=== PATIENT | female | born 1945 | race Caucasian/White ===

== ENCOUNTER 2019-07-03 13:05 | Outpatient (CLI) | payer MEDICARE, OTHER ==
[~2019-07-03] VITALS: Ht 165 cm; Wt 83.3 kg
[2019-07-03 13:29] VITALS: BP 134/87
[2019-07-03 14:07] LABS: BASOPHILS # (AUTO) 0.1 10^3/uL (0.0-0.1); BASOPHILS % (AUTO) 1 % (0-10); EOSINOPHILS # (AUTO) 0.1 10^3/uL (0.0-0.3); EOSINOPHILS % (AUTO) 1 % (0-10); HEMATOCRIT 42 % (35-52); HEMOGLOBIN 13.8 G/DL (11.5-16.0); LYMPHOCYTES # (AUTO) 2.1 X 10^3 (1.0-4.0); LYMPHOCYTES % (AUTO) 24 % (12-44); MEAN CORPUSCULAR HEMOGLOBIN 31 PG (25-34); MEAN CORPUSCULAR HGB CONC 33 G/DL (32-36); MEAN CORPUSCULAR VOLUME 93 FL (80-99); MEAN PLATELET VOLUME 10.9 FL (7.4-10.4); MONOCYTES # (AUTO) 0.6 X 10^3 (0.0-1.0); MONOCYTES % (AUTO) 7 % (0-12); NEUTROPHILS # (AUTO) 5.9 X 10^3 (1.8-7.8); NEUTROPHILS % (AUTO) 67 % (42-75); PLATELET COUNT 255 10^3/uL (130-400); RED CELL DISTRIBUTION WIDTH 13.2 % (10.0-14.5); WHITE BLOOD COUNT 8.7 10^3/uL (4.3-11.0)
[2019-07-03 14:08] LABS: BILIRUBIN,URINE NEGATIVE (NEGATIVE); CLARITY,URINE CLEAR; COLOR,URINE YELLOW; GLUCOSE, URINE (UA) NEGATIVE (NEGATIVE); KETONES,URINE 1+ (NEGATIVE); LEUKOCYTE ESTERASE ,URINE 2+ (NEGATIVE); NITRITE,URINE NEGATIVE (NEGATIVE); PH,URINE 5 (5-9); PROTEIN,URINE NEGATIVE (NEGATIVE)
[2019-07-03 14:29] LABS: PROTHROMBIN TIME PATIENT 13.4 SEC (12.2-14.7)
[2019-07-03 14:32] LABS: ALANINE AMINOTRANSFERASE 20 U/L (0-55); ALBUMIN 4.3 GM/DL (3.2-4.5); ALKALINE PHOSPHATASE 59 U/L (40-136); BILIRUBIN,TOTAL 0.5 MG/DL (0.1-1.0); BUN/CREATININE RATIO 25; CALCIUM 9.1 MG/DL (8.5-10.1); CARBON DIOXIDE 25 MMOL/L (21-32); CHLORIDE 110 MMOL/L (98-107); GFR ESTIMATED > 60; GLUCOSE 96 MG/DL (70-105); POTASSIUM 4.1 MMOL/L (3.6-5.0); SODIUM 143 MMOL/L (135-145); TOTAL PROTEIN 6.7 GM/DL (6.4-8.2)
--- NOTE | 2019-07-03 14:40 | Diagnostic Imaging Report ---
EXAMINATION: PA and lateral chest at 02:08 p.m. INDICATION: Preop. FINDINGS: There are no prior studies available for comparison. The heart size is within normal limits. The lungs are clear. There is no sign of failure, pneumonia, or pleural effusion. The ascending aortic shadow is somewhat prominent, but there is no sign of an aneurysm. The mediastinum is not widened. The osseous structures are intact. IMPRESSION: There is no evidence for an acute cardiopulmonary abnormality. Dictated by: Dictated on workstation # [id number]
[2019-07-03 14:47] LABS: BACTERIA,URINE TRACE /HPF
[2019-07-03 15:02] LABS: ERYTHROCYTE SEDIMENTATION RATE 14 MM/HR (0-30)
== END 2019-07-03 15:30 | disposition home or self-care (01) ==
LOC: PREOP 13:05
PROVIDERS: ATTEND Orthopaedic Surgery
DX: Z01.818 Encounter for other preprocedural examination (principal); M17.11 Unilateral primary osteoarthritis, right knee
CPT/HCPCS: 36415; 71046; 80053; 81000; 85025; 85610; 85652; 86850; 86900; 86901; 87081; 93005

== ENCOUNTER 2019-07-16 05:46 | Inpatient (IN) | payer MEDICARE, OTHER ==
--- NOTE | 2019-07-03 13:48 | HISTORY AND PHYSICAL ---
DATE OF SERVICE: ADMISSION HISTORY AND PHYSICAL ADMISSION SURGERY DATE AND DATE OF SERVICE: 07/16/2019. This will be for inpatient admission on 07/16/2019 for right total knee arthroplasty. The patient will require regular inpatient admission for pain management, gait abnormalities, physical therapy and comorbidities. HISTORY OF PRESENT ILLNESS: The patient is a 73-year-old female with progressively worsening right knee pain. She has had several years of progressive symptoms. She has undergone treatment with injections as well as anti-inflammatories and arthroscopy without long lasting relief. She reports progressive points to the point where it is interfering with activities of daily living. She denies back pain and denies paresthesias. Due to functional impairment and failure to improve with conservative measures, the patient elected to proceed with surgical intervention. REVIEW OF SYSTEMS: No chest pain, no shortness of breath, no dysuria. PAST MEDICAL HISTORY: Unremarkable. PAST SURGICAL HISTORY: Left hand, right knee arthroscopy. SOCIAL HISTORY: The patient denies alcohol, or tobacco use. FAMILY HISTORY: Significant for cancer. PRIMARY CARE PROVIDER: No local physician. MEDICATIONS: None. ALLERGIES: No known drug allergies. RADIOGRAPHS: Reveal severe tricompartmental osteoarthritis with complete loss of medial and patellofemoral joint spaces with multiple loose bodies noted. PHYSICAL EXAMINATION: GENERAL: The patient is well developed, well-nourished, in no acute distress. HEENT: Normocephalic, atraumatic. Pupils are equal, round, reactive to light. Oropharynx is clear. NECK: Supple, no lymphadenopathy. LUNGS: Clear to auscultation bilaterally. HEART: Regular rate and rhythm. ABDOMEN: Soft, nontender, nondistended. EXTREMITIES: The right knee demonstrates a large effusion. There is no erythema or warmth. Range of motion is 0/120. There is no varus valgus laxity. Negative anterior and posterior drawer. Patella demonstrates marked crepitus. She has negative straight leg raise. IMPRESSION: Right knee severe osteoarthritis, unresponsive to conservative measures. PLAN: Right total knee arthroplasty. The risks, benefits, options, ramifications and recovery were discussed at length with the patient. She understands and wishes to proceed. Job ID: [id number] DocumentID: [id number] Dictated Date: 07/03/2019 11:27:14 Financial Wellness Coach Date: 07/03/2019 13:46:56 Dictated By: MARK FISCHER MD
[2019-07-16] VITALS (13 sets, daily range): BP systolic 98–139; BP diastolic 51–105
[~2019-07-16] VITALS: Ht 165 cm; Wt 83.3 kg
[2019-07-16] MEDS ORDERED: CEFUROXIME INJECTION 1,500 MG in WATER (STERILE) FOR INJECTION 15 ML IV ONE (06:30)
[2019-07-16] MEDS ORDERED: LIDOCAINE PF 2% 5 ML (XYLOCAINE) VIAL ONE (06:42)
[2019-07-16] MEDS ORDERED: DEXAMETHASONE 10 MG/ML (DECADRON) 1 ML VIAL ONE (06:42)
[2019-07-16] MEDS ORDERED: fentaNYL INJECTION 100 MCG/2 ML AMP ONE ×2 (06:42→08:09)
[2019-07-16] MEDS ORDERED: ONDANSETRON 4 MG/2 ML (SDV) Z0FRAN ONE (06:42)
[2019-07-16] MEDS ORDERED: BUPIVACAINE 0.25% 30 ML (SENSORCAINE) VIAL ONE (06:42)
[2019-07-16] MEDS ORDERED: SEVOFLURANE (ULTANE) 15 ML INHAL SOLN ONE ×5 (06:42→08:54)
[2019-07-16] MEDS ORDERED: proPOfol 200 MG/20 ML (DIPRIVAN) VIAL IV ONE (06:42)
[2019-07-16] MEDS ORDERED: TRANEXAMIC ACID 100 MG/ML 10 ML INJECTION IV ONE (06:43)
[2019-07-16] MEDS ORDERED: MIDAZOLAM 2 MG/2 ML (VERSED) VIAL ONE (06:43)
[2019-07-16] MEDS: LACTATED RINGERS 1,000 ML IV PRN ×2 (06:43→08:06)
[2019-07-16] MEDS ORDERED: CATHETER FLUSH 10 ML SYR IV PRN (06:45)
--- NOTE | 2019-07-16 07:28 | Progress Note-Pre Operative ---
Pre-Operative Progress Note H&P Reviewed The H&P was reviewed, patient examined and no changes noted. Date Seen by Provider: Jul 16, 2019 Time Seen by Provider: 07:15 Date H&P Reviewed: Jul 16, 2019 Time H&P Reviewed: 07:11 Pre-Operative Diagnosis: right knee primary osteoarthritis MARK FISCHER MD Jul 16, 2019 07:28 POS
--- NOTE | 2019-07-16 07:29 | Progress Note-Post Operative ---
Post-Operative Progess Note Surgeon (s)/Coal Getter (s) Surgeon MARK FISCHER MD Coal Getter: mi tolentino Pre-Operative Diagnosis right knee primary osteoarthritis Post-Operative Diagnosis right knee primary osteoarthritis Procedure & Operative Findings Date of Procedure 07/16/19 Procedure Performed/Findings right total knee arthroplasty Anesthesia Type GETA Estimated Blood Loss Estimated blood loss (mL): minimal Specimens/Packing Specimens Removed none Packing: none MARK FISCHER MD Jul 16, 2019 07:29 POS
[2019-07-16] MEDS ORDERED: morphine PCA 100 MG/100 ML BAG IV PRN (07:30)
[2019-07-16] MEDS ORDERED: ACETAMINOPHEN 325 MG TABLET PO PRN (07:30)
[2019-07-16] MEDS ORDERED: oxyCODONE/APAP 5/325MG (PERCOCET 5) TABLET PO PRN (07:30)
[2019-07-16] MEDS ORDERED: OXYC1TAB87 PO (07:30)
[2019-07-16] MEDS ORDERED: diphenhydrAMINE 50 MG/ML INJ (BENADRYL) IVP PRN (07:30)
--- NOTE | 2019-07-16 07:32 | D/C HH Face to Face Order ---
D/C Face to Face Orders Reconcile Patient Problems Problems Reviewed?: Yes Instructions for Patient [facility], Patient Instructions/FollowUp: three weeks Physician to follow Patient: three weeks Discharge Diet for Home: Regular Diet Patient Data-Allergies,Ht & Wt Patient Allergies: Coded Allergies: Sulfa (Sulfonamide Antibiotics) (Verified Allergy, Mild, HIVES, 07/16/19) Home Health Need/Face to Face Date of Face to Face: Jul 16, 2019 Clinical Findings: Instability, Muscle weakness, Pain with ambulation, Unsteady gait I have seen Pt [id number]: Yes Discharged To: Home Diagnosis/Conditions: right total knee arthroplasty Patient is Homebound due to: [place] fall risk due to instabilty, Muscle weakness, Pain w/ambulation Homebound Status Due to the above stated illness, injury or surgical procedure (medical condition or diagnosis) and associated clinical findings, the patient is homebound because of his/her inability to leave home except with aid of a supportive device and/or person AND leaving the home requires a considerable and taxing effort or is medically contraindicated. Pt req the following assistanc: [facility] Nursing Orders Home Health Services Order: Physical Therapy-Evaluate & Treat DC right knee charisse and apply steri strips on 07/30/19 ok to begin on Sunday Therapy Orders Therapy Orders: Physical Therapy, PT to assess for OT Therapy Specific Orders: Eval assistive deivces, Teach enviro modifications/safety, Gait training, Increase strength/endurance, Provider maintenance therapy, Restore ROM Certify Stmt I certify that this patient is under my care and that I, a nurse practitioner or a physician; a therapy administrative assistant working with me, had a face to face encounter that - meets the physician face to face encounter requirements with this patient as dated. MARK FISCHER MD Jul 16, 2019 07:32 POS
[2019-07-16] MEDS ORDERED: INTRA-ARTICULAR IU ONE ×5 (07:45)
[2019-07-16] MEDS ORDERED: morphine INJ 10 MG/ML 1ML (SYR OR VIAL) ONE (09:36)
[2019-07-16] MEDS ORDERED: morphine INJ 10 MG/ML 1ML (SYR OR VIAL) IVP ONE (09:45)
[2019-07-16] MEDS ORDERED: ONDANSETRON 4 MG/2 ML (SDV) Z0FRAN IVP PRN (09:45)
--- NOTE | 2019-07-16 10:20 | NUR ---
SAFIA HERNDON admitted to room 427-1, with an admitting diagnosis of RIGHT TOTAL KNEE REPLACEMENT, on 07/16/19 from RECOVERY via BED, accompanied by STAFF. SAFIA HERNDON introduced to surroundings, call light, bed controls, phone, TV, temperature control, lights, meal times, smoking policy, visitor policy, side rail policy, bathrooms and showers. Patient Rights given to patient in the handbook. SAFIA HERNDON verbalizes understanding that [facility] is not responsible for the loss or damage to any personal effects or valuables that are kept in the patients posession during their hospitalization. The following Patient Care Plans were discussed with the PATIENT: Discharge Planning, TOTAL KNEE REPLACEMENT, PAIN, ANDKNOWLEDGE . SAFIA HERNDON verbalizes understanding of Interdisciplinary Patient Education.
--- NOTE | 2019-07-16 10:43 | Diagnostic Imaging Report ---
EXAMINATION: Right knee at 916h. INDICATION: Postop AP and lateral views of the right knee were received from the OR. There are no prior studies for comparison. There is a total knee prosthesis in place. The prosthetic component is seen to be in good position. There is a prominent cylindrical lucency in the proximal tibia inferior to the tibial component of the total knee prosthesis. I suspect that this is a postoperative defect. There is no fracture or acute bony abnormality is noted. There is gas in the soft tissues about the knee joint and skin charisse are seen along the anterior aspect of the joint space. IMPRESSION: Stable postoperative right knee. Dictated by: Dictated on workstation # [id number]
[2019-07-16] MEDS: ONDANSETRON 4 MG/2 ML (SDV) Z0FRAN IVP PRN ×2 (12:39→19:02)
--- NOTE | 2019-07-16 13:04 | Progress Note ---
Standard Progress Note Progress Notes/Assess & Plan Date Seen by a Provider: Jul 16, 2019 Time Seen by a Provider: 09:30 Progress/Assessment & Plan post op check no complaints radiographs--HW well positioned without fracture RLE--2 plus DP pulse with brisk cap refill. Intact sensation throughout. intact DF and PF of toes and ankle s/p RTKA mobilize as able MARK FISCHER MD Jul 16, 2019 13:04 POS
--- NOTE | 2019-07-16 13:08 | OPERATIVE REPORT ---
DATE OF SERVICE: 07/16/2019 PREOPERATIVE DIAGNOSIS: Right knee primary osteoarthritis. POSTOPERATIVE DIAGNOSIS: Right knee primary osteoarthritis. PROCEDURE: Right total knee arthroplasty. SURGEON: Evert Fischer MD SCHEDULER CONVEYOR: Darryn Munguia, who assisted throughout the procedure and closed the incision. ANESTHESIA: General endotracheal plus regional nerve block by Clarisse García CRNA. TOURNIQUET TIME: Approximately, 60 minutes at 300 mmHg. ESTIMATED BLOOD LOSS: Minimal. DRAINS: None. COMPLICATIONS: None. MATERIALS: Microport cemented size 4 femur, cemented size 4 tibia with a 12 mm insert and cemented size 32 patellar button. The patient was transferred to recovery room awake and in stable condition. POSTOPERATIVE PLAN: Routine protocol. STATEMENT OF MEDICAL NECESSITY: The patient is a 73-year-old female with longstanding progressive right knee pain. Radiographs revealed severe medial and patellofemoral arthrosis. She had undergone treatment with arthroscopy, injections and anti-inflammatories without relief and due to functional impairment and failure to improve with conservative measures, the patient elected to proceed with surgical intervention. DESCRIPTION OF PROCEDURE: After risks and benefits of procedure were discussed and questions were answered, informed consent was signed and placed on chart. The operative site was confirmed in the preoperative holding area initialed by the surgeon. The patient was then transferred to the operating room and after adequate levels of regional plus general endotracheal anesthetic were obtained, a timeout was called confirming the operative site. The right lower extremity was prepped and draped in the usual sterile fashion with the leg elevated and the knee flexed. Tourniquet was inflated to 300 mmHg. Standard anterior approach was utilized. Hemostasis was obtained with cautery. Medial parapatellar arthrotomy was performed leaving 1 cm cuff on the patella for later reattachment. A portion of the fat pad was resected. Subperiosteal release was performed on the proximal medial tibia being careful to stay on the bony surface. The ACL was resected. Intramedullary guide was passed into the femur. The distal cutting block was placed and the distal cut was made. The femur sized to a size 4. The 4 cutting block was placed parallel to the epicondylar axis and cuts were made from posterior to anterior. Subperiosteal release was then carefully performed on the posterior distal femur with curved osteotome being careful to stay on the bony surface. Intramedullary guide was then passed into the tibia. The cutting block was placed and drop keshav transected the intermalleolar axis and the cut was made. The four baseplate was placed and the drop keshav transected the intermalleolar axis. This was prepared with the drill and keel punch. The femoral trial was placed and trochlear cut was made. A 12 mm insert provided full extension. Greater than 120 degrees of flexion with gravity, trace valgus laxity, no varus laxity in full extension, otherwise no varus or valgus laxity. Negative anterior and posterior drawer throughout full range of motion. The patella was prepared using the freehand technique by resecting 10 mm off the undersurface. The peg guide was placed and peg holes were drilled. The patellar button trial was placed and the patella tracked well. The trials were removed. Joint was irrigated with pulse lavage. Bone ends were irrigated and dried. The periarticular block was placed in the posterior capsule, medial and lateral retinaculum, extensor mechanism, subcutaneous tissues. The bone ends were further irrigated and dried. The tibial baseplate was cemented in position. Excessive cement was removed. The superior surface was irrigated and dried and the polyethylene insert was placed. Distal femur was irrigated and dried and the femoral prosthesis was cemented into position. Excessive cement was removed. The knee was brought in full extension until cement had cured. The undersurface of patella was irrigated and dried and the patellar button was cemented into position. Once the cement had cured, the knee was taken through range of motion. Full extension was easily obtained, 120 degrees of flexion with gravity was easily obtained. The patella tracked well. There is trace valgus laxity in full extension, otherwise no varus or valgus laxity. Negative anterior and posterior drawer throughout full range of motion. The joint was further irrigated with pulse lavage. Arthrotomy was closed with #2 Tevdek in hnecbi-ap-jpayc interrupted fashion. The knee was flexed. Patella tracked well with no undue tension at the repair site. Subcutaneous tissues were irrigated using a total of 6 liters throughout the procedure. A 0 Vicryl was used for the deep subcutaneous tissue, 2-0 Vicryl for the superficial subcutaneous tissue, charisse used on the skin. A soft dressing was applied. The tourniquet was deflated and the patient was transferred to the recovery room awake and in stable condition. Job ID: [id number] DocumentID: [id number] Dictated Date: 07/16/2019 09:16:55 Dynamometer Tester Engine Date: 07/16/2019 13:08:21 Dictated By: EVERT FISCHER MD
[2019-07-16] MEDS ORDERED: PROMETHAZINE INJ 25 MG/ML (PHENERGAN) AMP ONE (13:56)
[2019-07-16] MEDS ORDERED: PROMETHAZINE INJ 25 MG/ML (PHENERGAN) AMP IVP PRN ×2 (14:00→15:30)
[2019-07-16] MEDS: SENNA W/DOCUSATE (SENOKOT S) TABLET PO SCH ×2 (14:18→22:13)
[2019-07-16] MEDS: NS IV 1000 ML 1,000 ML IV SCH (14:23)
--- NOTE | 2019-07-16 14:46 | Physical Therapy Evaluation ---
PT Evaluation-General Medical Diagnosis Admission Date Jul 16, 2019 at 05:46 Medical Diagnosis: right TKA Onset Date: Jul 16, 2019 Therapy Diagnosis Therapy Diagnosis: impaired mobility, strength, endurance, ROM Precautions Precautions/Isolations: Standard Precautions Weight Bear Status Right Lower Extremity: Right Weight Bearing/Tolerated Referral Physician: Darryn Munguia APRN Reason for Referral: Evaluation/Treatment Medical History Additional Medical History PAST MEDICAL HISTORY: Unremarkable. PAST SURGICAL HISTORY: Left hand, right knee arthroscopy. Reviewed History: Yes Social History Home: Single Level Current Living Status: Spouse Entry Into Home: Stairs With Railing PT Steps Into Home: 3 Prior Prior Level of Function SCALE: Activities may be completed with or without assistive devices. 6-Alatokdftu-aragowp completes the activity by him/herself with no assistance from a helper. 5-Set-up or Clean-up Assistance-helper sets up or cleans up; patient completes activity. [place] assists only prior to or following the activity. 4-Supervision or Touching Assistance-helper provides verbal cues and/or touching/steadying and/or contact guard assistance as patient completes activity. Assistance may be provided throughout the activity or intermittently. 3-Partial/Moderate Assistance-helper does LESS THAN HALF the effort. [place] lifts, holds or supports trunk or limbs, but provides less than half the effort. 2-Substantial/Maximal Assistance-helper does MORE THAN HALF the effort. [place] lifts or holds trunk or limbs and provides more than half the effort. 4-Epiareuur-ekigzp does ALL the effort. Patient does none of the effort to complete the activity. Or, the assistance of 2 or more helpers is required for the patient to complete the activity. If activity was not attempted, code reason: 7-Patient Refused. 9-Not Applicable-not attempted and the patient did not perform the activity before the current illness, exacerbation or injury. 10-Not Attempted due to Environmental Limitations-(lack of equipment, weather restraints, etc.). 88-Not Attempted due to Medical Conditions or Safety Concerns. Bed Mobility: 6 Transfers (B,C,W/C): 6 Gait: 6 Stairs: 6 Indoor Mobility (Ambulation): Independent Stairs: Independent PT Evaluation-Current Subjective Patient in bed pre tx, agrees to PT, but has been vomiting since she got to her room. This is the second time PT attempted with patient and she just vomited into her basin. Patient agrees to LE exercise and apply CPM. Pt/Family Goals to be independent at home Objective Patient Orientation: Person, Place, Situation Attachments: SCD's, Polar Pack, IV ROM/Strength ROM Lower Extremities right knee flexion 80 degrees, extension +5 degrees Strength Lower Extremities 3/5 gross RLE Sensory Vision: Wears Glasses Hearing: Functional Sensation Right Lower Extremit: Impaired Sensation Left Lower Extremity: Intact Sensation Lower Extremities Patient still has numbness in her right leg from the knee down. Treatment RLE total knee protocol x10 (AP, QS, HS, SAQ, SLR). CPM donned and fit to leg and set to 50/-2. Patient could not tolerate more flexion on the CPM due to right leg cramping. SCD's and polar care applied back to leg. Patient in bed post tx with nurse call, phone, tray, all needs met. Assessment/Needs Patient has impaired mobility, strength, endurance, ROM. Patient is very nauseated today and not able to get out of bed at this time. Rehab Potential: Fair PT Income Tax Expert Goals Income Tax Expert Goals PT Income Tax Expert Goals Time Frame: Jul 23, 2019 Sit to Lying (QC): 4 Lying-Sitting on Side/Bed(QC): 4 Sit to Stand (QC): 4 Roll Left to Right (QC): 4 Chair/Uti-qw-Qjwxk Xfer(QC): 4 Distance: 50' Walk 10 feet (QC): 4 Walk 10ft-Uneven Surface(QC): 4 Walk 50ft with 2 Turns (QC): 4 Gait Assistive Device: FWW PT Plan Problem List Problem List: Activity Tolerance, Functional Strength, Safety, Balance, Gait, Transfer, Bed Mobility, ROM Treatment/Plan Treatment Plan: Continue Plan of Care Treatment Plan: Bed Mobility, Education, Functional Activity Rodrigo, Functional Strength, Gait, Safety, Therapeutic Exercise, Transfers Treatment Duration: Jul 23, 2019 Frequency: 11 times per week Estimated Hrs Per Day: .25 hour per day Patient and/or Family Agrees t: Yes Safety Risks/Education Patient Education: Reviewed Precautions, Reviewed Use of Ice, Correct Positioning, Safety Issues Teaching Recipient: Patient Teaching Methods: Demonstration, Discussion Response to Teaching: Reinforcement Needed Discharge Recommendations Plan Patient will perform bed mobility and transfer training, balance and endurance training, functional strengthening, stair training, gait training, and education, to improve functional mobility and independence at home. Therapy Discharge Recommendati: Other, See Comments (home with family) Time/GCodes Time In: 1416 Time Out: 1430 Total Billed Treatment Time: 14 Total Billed Treatment 1 visit EVAntoinette 14' ARIEL PEREIRA PT Jul 16, 2019 14:46 POS
--- NOTE | 2019-07-16 15:43 | Consultation - Hospitalist ---
HPI History of Present Illness: HPI/Chief Complaint Pt is a 73yoCF who was admitted for total knee arthroplasty under the care of Dr Tipton. I am consulted for medical management. Patient has just received Phener frandy and is quite sedate. She is able to open her eyes and nodded her head a couple of times though I am unsure if this was appropriate to my questions. When asked about pain though she promptly fell back asleep. Her is at bedside and states that she was very nauseated following surgery and could not quit vomiting. He also states she has already worked with PT. Source: patient Exam Limitations: no limitations Date Seen 07/16/19 Attending Physician Evert Tipton MD PCP Fawad Bolivar DO Referring Physician Date of Admission Jul 16, 2019 at 05:46 Home Medications & Allergies Home Medications Reviewed patient Home Medication Reconciliation performed by pharmacy medication reconciliations cath lab radiology technician and/or nursing. Patients Allergies have been reviewed. Allergies Allergies Coded Allergies Sulfa (Sulfonamide Antibiotics) (Verified Allergy, Mild, HIVES, 07/16/19) Past Eifzkvl-Smtzla-Xpbqed Hx Past Med/Social Hx: Reviewed Nursing Past Med/Soc Hx Patient Social History Marrital Status: Alcohol Use: Denies Use Recreational Drug Use: No Smoking Status: Never a Smoker Physical Abuse Screen: No Sexual Abuse: No Recent Foreign Travel: No Contact w/other who traveled: No Recent Hopitalizations: No Recent Infectious Disease Expo: No Immunizations Up To Date Date of Influenza Vaccine: Jul 15, 2019 Seasonal Allergies Seasonal Allergies: No Past Medical History Surgeries: Orthopedic Sexually Transmitted Disease: No HIV/AIDS: No Musculoskeletal: Arthritis Loss of Vision: Denies Hearing Impairment: Denies History of Blood Disorders: No Adverse Reaction to Blood Wagner: No (N/A) Family History Reviewed Nursing Family Hx Arthritis G8 BROTHER G8 SISTER Hypercholesterolemia daughter Hypertension daughter Myocardial infarction 19 MOTHER Review of Systems ROS-Unable to Obtain: due to sedation Constitutional: see HPI Physical Exam Physical Exam Vital Signs Vital Signs - First Documented 07/16/19 06:20 Temp 36.8 Pulse 98 Resp 16 B/P (MAP) 139/88 Pulse Ox 99 O2 Delivery Room Air Capillary Refill : Less Than 3 Seconds Height, Weight, BMI Height: '" Weight: lbs. oz. kg; 30.59 BMI Method: General Appearance: No Apparent Distress, WD/WN, Other (sleepy) Respiratory: Lungs Clear, No Accessory Muscle Use, No Respiratory Distress Cardiovascular: Regular Rate, Rhythm, No Murmur Gastrointestinal: Normal Bowel Sounds, Non Tender, Soft Extremity: Other (right knee propped up) Neurologic/Psychiatric: Alert, Other (sleepy) Results Results/Procedures Labs Patient resulted labs reviewed. Imaging: Reviewed Imaging Report Assessment/Plan Assessment and Plan Assess & Plan/Chief Complaint Right knee osteoarthritis s/p TKA POD #0 Continue pain regimen PT/OT Nausea and vomiting Will decrease dose of phenergan but leave 25mg available Zofran prn as well Diagnosis/Problems Diagnosis/Problems (1) Intractable nausea and vomiting (2) Osteoarthritis of right knee JANETH OCHOA MD Jul 16, 2019 15:43 POS
[2019-07-16] MEDS: CEFUROXIME INJECTION 750 MG in WATER (STERILE) FOR INJECTION 10 ML IV SCH (16:11)
[2019-07-17] VITALS: BP 107/69
[2019-07-17] MEDS: CEFUROXIME INJECTION 750 MG in WATER (STERILE) FOR INJECTION 10 ML IV SCH (00:07)
[2019-07-17] MEDS: NS IV 1000 ML 1,000 ML IV SCH ×3 (02:12→16:30)
[2019-07-17 04:00] VITALS: BP 129/73
[2019-07-17 05:47] LABS: HEMOGLOBIN 11.5 G/DL (11.5-16.0)
[2019-07-17] MEDS: ENOXAPARIN 30 MG/0.3 ML (LOVENOX) SYR SC SCH ×2 (06:10→18:41)
[2019-07-17] MEDS: MULTIVIT W/MINERALS TAB (THERAGRAN M) PO SCH (06:11)
--- NOTE | 2019-07-17 06:54 | Anesthesia-General Post-Op ---
General Patient Condition Mental Status/LOC: Same as Preop Cardiovascular: Satisfactory Nausea/Vomiting: Absent Respiratory: Satisfactory Pain: Controlled Complications: Absent Post Op Complications Complications Patient had PONV. Treated with medications. Follow Up Care/Instructions Patient Instructions Informed patient to report PONV on all subsequent surgeries. Anesthesia/Patient Condition Patient Condition Patient is doing well, no complaints, stable vital signs, no apparent adverse anesthesia problems other than discussed above. No complications reported per nursing. BOB ELLIS CRNA Jul 17, 2019 06:54 POS
[2019-07-17 08:00] VITALS: BP 144/80
--- NOTE | 2019-07-17 08:02 | Progress Note ---
Standard Progress Note Progress Notes/Assess & Plan Date Seen by a Provider: Jul 17, 2019 Time Seen by a Provider: 08:01 Progress/Assessment & Plan post op check no complaints radiographs--HW well positioned without fracture RLE--2 plus DP pulse with brisk cap refill. Intact sensation throughout. intact DF and PF of toes and ankle s/p RTKA mobilize as able Final Diagnosis reports no nausea this AM Vital Signs Date Time Temp Pulse Resp B/P (MAP) Pulse Ox O2 Delivery O2 Flow Rate FiO2 07/17/19 06:32 18 07/17/19 04:00 37.4 97 20 129/73 (91) 97 Room Air 07/17/19 00:00 37.1 81 18 107/69 (82) 99 Room Air 07/16/19 21:00 Room Air 07/16/19 20:00 36.6 93 20 114/71 (85) 100 Room Air 07/16/19 19:00 18 07/16/19 16:00 36.4 105 18 133/81 (98) 100 Room Air 07/16/19 12:00 36.7 16 07/16/19 12:00 36.0 88 20 130/72 (91) 94 Room Air 07/16/19 10:20 Room Air 07/16/19 10:10 36.7 16 122/66 (84) 95 Room Air 07/16/19 10:10 Room Air 07/16/19 10:00 16 127/64 (85) 100 Room Air 07/16/19 10:00 36.4 91 18 125/74 (91) 93 Room Air 07/16/19 09:55 OxyMask 3 07/16/19 09:50 20 125/63 (83) 100 OxyMask 07/16/19 09:40 16 126/105 (112) 100 OxyMask 10 07/16/19 09:40 OxyMask 5 07/16/19 09:30 16 115/67 (83) 100 OxyMask 10 07/16/19 09:25 OxyMask 10 07/16/19 09:20 16 134/75 (94) 100 10 07/16/19 09:10 36.7 17 98/51 (67) 99 OxyMask 10 07/16/19 09:10 OxyMask 10 07/16/19 09:00 94 Room Air I & O 07/17/19 07:00 Intake Total 3565 ml Output Total 1 ml Balance 3564 ml Laboratory Tests Test 07/17/19 05:25 Range/Units Hemoglobin 11.5 11.5-16.0 G/DL Hematocrit 35 35-52 % RLE--dressing intact. NVI distally. No calf tenderness s/p RTKA ]PT/OT MARK FISCHER MD Jul 17, 2019 08:02 POS
[2019-07-17] MEDS: SENNA W/DOCUSATE (SENOKOT S) TABLET PO SCH ×2 (09:19→20:54)
[2019-07-17] MEDS: ASPIRIN E.C. 81 MG (ECOTRIN) TAB PO SCH ×2 (09:19→10:52)
--- NOTE | 2019-07-17 09:59 | Physical Therapy Daily Note ---
PT Daily Note-Current Subjective Patient agrees to PT at this time. Patient reports she is feeling better than yesterday when she was nauseous, and that her knee feels fine while in bed, but pain increases every time she gets up to use the bathroom. Pain Numeric Pain Scale: 4 Location: Right Location Body Site: Knee Pain Description: Acute Mental Status Patient Orientation: Person, Place, Time, Situation Attachments: SCD's, Polar Pack, IV Transfers SCALE: Activities may be completed with or without assistive devices. 3-Semgymgcnp-eikqirq completes the activity by him/herself with no assistance from a helper. 5-Set-up or Clean-up Assistance-helper sets up or cleans up; patient completes activity. [place] assists only prior to or following the activity. 4-Supervision or Touching Assistance-helper provides verbal cues and/or touching/steadying and/or contact guard assistance as patient completes activity. Assistance may be provided throughout the activity or intermittently. 3-Partial/Moderate Assistance-helper does LESS THAN HALF the effort. [place] lifts, holds or supports trunk or limbs, but provides less than half the effort. 2-Substantial/Maximal Assistance-helper does MORE THAN HALF the effort. [place] lifts or holds trunk or limbs and provides more than half the effort. 5-Mlrwfvysp-uzucao does ALL the effort. Patient does none of the effort to complete the activity. Or, the assistance of 2 or more helpers is required for the patient to complete the activity. If activity was not attempted, code reason: 7-Patient Refused. 9-Not Applicable-not attempted and the patient did not perform the activity before the current illness, exacerbation or injury. 10-Not Attempted due to Environmental Limitations-(lack of equipment, weather restraints, etc.). 88-Not Attempted due to Medical Conditions or Safety Concerns. Transfers (B, C, W/C): 4 Roll Left to Right (QC): 4 Sit to Stand (QC): 4 Weight Bearing Right Lower Extremity: Right Weight Bearing/Tolerated Gait Training Does the Patient Walk?: Yes Gait: 4 Distance: 150' Walk 10 feet (QC): 4 Walk 50 ft with 2 Turns(QC): 4 Walk 150 ft (QC): 4 Gait Assistive Device: FWW antalgic gait, step to pattern Exercises Supine Ex: Ankle pumps, Heel Slides Supine Reps: 10 Seated Therapy Exercises: Long arc quads Seated Reps: 10 Assessment Patient able to perform bed mobility with contact guard assist and required minimal assistance to stand from EOB. Patient ambulated CGA 150' with FWW and antalgic gait, reporting increased pain. Patient seated in recliner with legs elevated and polar pack replaced. Patient had been up toileting during the morning and increasing general mobility in the room. PT Feeder/Folder Goals Feeder/Folder Goals PT Feeder/Folder Goals Time Frame: Jul 23, 2019 Sit to Lying (QC): 4 Lying-Sitting on Side/Bed(QC): 4 Sit to Stand (QC): 4 Roll Left to Right (QC): 4 Chair/Efj-hi-Hmogk Xfer(QC): 4 Distance: 50' Walk 10 feet (QC): 4 Walk 10ft-Uneven Surface(QC): 4 Walk 50ft with 2 Turns (QC): 4 Gait Assistive Device: FWW PT Plan Treatment/Plan Treatment Plan: Continue Plan of Care Treatment Plan: Bed Mobility, Education, Functional Activity Rodrigo, Functional Strength, Gait, Safety, Therapeutic Exercise, Transfers Treatment Duration: Jul 23, 2019 Frequency: 11 times per week Estimated Hrs Per Day: .25 hour per day Patient and/or Family Agrees t: Yes Time/GCodes Time In: 834 Time Out: 850 Total Billed Treatment Time: 16 Total Billed Treatment 1 visit FA 16min MILI GÓMEZ PT Jul 17, 2019 09:59 POS
[2019-07-17 12:00] VITALS: BP 138/74
--- NOTE | 2019-07-17 13:13 | Occupational Therapy Eval ---
OT Evaluation-General/PLF Medical Diagnosis Admission Date Jul 16, 2019 at 05:46 Medical Diagnosis: right TKA Onset Date: Jul 16, 2019 Therapy Diagnosis Therapy Diagnosis: Decreased ADL skills Precautions Precautions/Isolations: Fall Prevention, Standard Precautions Safety Interventions: None Weight Bear Status Weight Bearing Restriction: Weight Bearing/Tolerated Referral Physician: Darryn Munguia APRN Referral Reason: Activity Tolerance, Self Care, Evaluation/Treatment, Strengthening/ROM Medical History Pertinent Medical History: OA Additional Medical History Left hand, right knee surgery Current History Elective knee replacement. Reviewed History: Yes Social History Home: Single Level Current Living Status: Spouse Entry Into Home: Stairs With Railing Steps Into Home: 3 ADL-Prior Level of Function SCALE: Activities may be completed with or without assistive devices. 8-Zbdbqsnqgf-lhkuoop completes the activity by him/herself with no assistance from a helper. 5-Set-up or Clean-up Assistance-helper sets up or cleans up; patient completes activity. [place] assists only prior to or following the activity. 4-Supervision or Touching Assistance-helper provides verbal cues and/or touching/steadying and/or contact guard assistance as patient completes activity. Assistance may be provided throughout the activity or intermittently. 3-Partial/Moderate Assistance-helper does LESS THAN HALF the effort. [place] lifts, holds or supports trunk or limbs, but provides less than half the effort. 2-Substantial/Maximal Assistance-helper does MORE THAN HALF the effort. [place] lifts or holds trunk or limbs and provides more than half the effort. 9-Dzbccmilt-aullqh does ALL the effort. Patient does none of the effort to complete the activity. Or, the assistance of 2 or more helpers is required for the patient to complete the activity. If activity was not attempted, code reason: 7-Patient Refused. 9-Not Applicable-not attempted and the patient did not perform the activity before the current illness, exacerbation or injury. 10-Not Attempted due to Environmental Limitations-(lack of equipment, weather restraints, etc.). 88-Not Attempted due to Medical Conditions or Safety Concerns. ADL PLOF Comments Pt. states that she is independent with daily tasks. Self Care: Independent Functional Cognition: Independent DME/Equipment: Bath Bench, Grab Bars, Shower Hose Turbine Mechanic, Tub/Shower DME/Equipment Comments Pt. has walker Occupation: [employer] Self: Yes OT Current Status Subjective Pt. reports 12/18 pain in right knee. Pt. has pain pump. Appearance Pt. up in chair. Agrees to work with OT. Mental Status/Objective Patient Orientation: Person, Place, Time, Situation Current Glasses/Contacts: Yes Upper Extremity ROM WFL ADL-Treatment Lower Body Dressing (QC): 4 (SBA) On/Off Footwear (QC): 4 Toileting Hygiene (QC): 4 Toilet Transfer (QC): 4 Pt. agrees to OT. Pt. is able to stand from chair with SBA, ambulate into bathroom with CGA, and toilet self with SBA. Pt. is able to ambulate back to chair and demonstrate ability to doff/don slipper socks with SBA. Due to pt. being able to cleanse self after toileting, safely ambulate with walker, and complete partial LE dressing with SBA, OT is not warranted at this time. Pt. verbalizes understanding of therapy goals and will continue to gain independence with these tasks through PT for LE strengthening and ROM, and pain control. All needs met up in chair. Education OT Patient Education: Correct positioning, Modified ADL techniques, Progress toward Goal/Update tx plan, Purpose of tx/functional activities, Reviewed precautions, Rehab process, Transfer techniques Teaching Recipient: Patient Teaching Methods: Demonstration, Discussion Response to Teaching: Verbalize Understanding, Return Demonstration OT Short Term Goals Short Term Goals 1=Demonstrate adherence to instructed precautions during ADL tasks. 2=Patient will verbalize/demonstrate understanding of assistive de vices/modifications for ADL. 3=Patient will improve strength/tolerance for activity to enable patient to perform ADL's. OT Custodial Goals Custodial Goals Time Frame: Jul 17, 2019 Additional Goals: 1-Demonstrate ADL Tasks, 2-Verbalize Understanding 1=Demonstrate adherence to instructed precautions during ADL tasks. 2=Patient will verbalize/demonstrate understanding of assistive devices/modifications for ADL. 3=Patient will improve strength/tolerance for activity to enable patient to perform ADL's. No further OT warranted at this time. OT Education/Plan Problem List/Assessment Assessment: No Skilled OT Needs ID'd Discharge Recommendations Plan/Recommendations: Discontinue OT Treatment Plan/Plan of Care Treatment,Training & Education: Yes Treatment Duration: Jul 17, 2019 Frequency: 1 time per week Agreement: Yes Rehab Potential: Good Time/GCodes Start Time: 12:35 Stop Time: 12:50 Total Time Billed (hr/min): 15 Billed Treatment Time 1, EVL Discontinue OT at this time. SVETA HARTMANN OT Jul 17, 2019 13:12 POS
--- NOTE | 2019-07-17 13:56 | Physical Therapy Daily Note ---
PT Daily Note-Current Subjective Patient agrees to PT at this time. Patient reports she has been up to the bathroom but mostly sitting in the chair. She hasn't been back to bed or used CPM since morning. Pain Numeric Pain Scale: 4 Location: Right Location Body Site: Knee Pain Description: Acute Mental Status Patient Orientation: Person, Place, Time, Situation Attachments: IV Transfers SCALE: Activities may be completed with or without assistive devices. 3-Szzkqglayz-snpukfx completes the activity by him/herself with no assistance from a helper. 5-Set-up or Clean-up Assistance-helper sets up or cleans up; patient completes activity. [place] assists only prior to or following the activity. 4-Supervision or Touching Assistance-helper provides verbal cues and/or touc subhash/steadying and/or contact guard assistance as patient completes activity. Assistance may be provided throughout the activity or intermittently. 3-Partial/Moderate Assistance-helper does LESS THAN HALF the effort. [place] lifts, holds or supports trunk or limbs, but provides less than half the effort. 2-Substantial/Maximal Assistance-helper does MORE THAN HALF the effort. [place] lifts or holds trunk or limbs and provides more than half the effort. 1-Qxhxnwdeq-xuhuqa does ALL the effort. Patient does none of the effort to complete the activity. Or, the assistance of 2 or more helpers is required for the patient to complete the activity. If activity was not attempted, code reason: 7-Patient Refused. 9-Not Applicable-not attempted and the patient did not perform the activity before the current illness, exacerbation or injury. 10-Not Attempted due to Environmental Limitations-(lack of equipment, weather restraints, etc.). 88-Not Attempted due to Medical Conditions or Safety Concerns. Roll Left to Right (QC): 5 Sit to Lying (QC): 5 Sit to Stand (QC): 5 Weight Bearing Right Lower Extremity: Right Weight Bearing/Tolerated Gait Training Does the Patient Walk?: Yes Gait: 5 Distance: 250' Walk 10 feet (QC): 5 Walk 50 ft with 2 Turns(QC): 5 Walk 150 ft (QC): 5 Gait Assistive Device: FWW SBA. Patient demonstrated antalgic gait initially d/t stiffness but able to ambulate with only slight antalgic gait and faster pace. Improved gait mechanics from morning. Exercises Supine Ex: Heel Slides Supine Reps: 10 Seated Therapy Exercises: Long arc quads, Hip flexion Seated Reps: 10 Assessment Patient able to stand from chair without assistance and ambulate 250' SBA. Patient's gait was initially antalgic and stiff, but mechanics improved with further ambulation. Patient returned to bed and was able to complete bed mobility without assistance. Patient set up on polar pack and CPM to 70 degrees. PT Fork Operator Goals Fork Operator Goals PT Skilled Nursing Goals Time Frame: Jul 23, 2019 Sit to Lying (QC): 4 Lying-Sitting on Side/Bed(QC): 4 Sit to Stand (QC): 4 Roll Left to Right (QC): 4 Chair/Khv-oc-Hteof Xfer(QC): 4 Distance: 50' Walk 10 feet (QC): 4 Walk 10ft-Uneven Surface(QC): 4 Walk 50ft with 2 Turns (QC): 4 Gait Assistive Device: FWW PT Plan Treatment/Plan Treatment Plan: Continue Plan of Care Treatment Plan: Bed Mobility, Education, Functional Activity Rodrigo, Functional Strength, Gait, Safety, Therapeutic Exercise, Transfers Treatment Duration: Jul 23, 2019 Frequency: 11 times per week Estimated Hrs Per Day: .25 hour per day Patient and/or Family Agrees t: Yes Time/GCodes Time In: 1322 Time Out: 1342 Total Billed Treatment Time: 20 Total Billed Treatment 1 visit FA 20min MILI GÓMEZ PT Jul 17, 2019 13:56 POS
[2019-07-17 16:29] VITALS: BP 168/84
--- NOTE | 2019-07-17 18:26 | DISCHARGE SUMMARY ---
DATE OF SERVICE: DATE OF DISCHARGE: 07/18/2019. DIAGNOSIS: Right knee primary osteoarthritis. PROCEDURE: Right total knee arthroplasty. HISTORY: The patient is a 73-year-old female, who underwent right total knee arthroplasty without complications. Postoperatively, she did very well. At time of discharge, her wound was clean and dry. She has no calf tenderness. Negative Homans sign. She cleared physical therapy. She was tolerating diet well and tolerating pain with oral pain medication. CONDITION AT DISCHARGE: Good. DISCHARGE DIET: Regular. FOLLOWUP: Followup is in three weeks. Home physical therapy has been arranged. DISCHARGE MEDICATIONS: Home medications, aspirin and Percocet as needed for pain. ACTIVITIES: Weightbearing as tolerated with a walker as needed. Job ID: [id number] DocumentID: [id number] Dictated Date: 07/17/2019 18:19:52 Fisheries Management Biologist Date: 07/17/2019 18:25:02 Dictated By: MARK FISCHER MD
[2019-07-17 19:52] VITALS: BP 146/75
[2019-07-18 00:25] VITALS: BP 159/77
[2019-07-18 04:00] VITALS: BP 155/77
[2019-07-18] MEDS: NS IV 1000 ML 1,000 ML IV SCH (05:24)
[2019-07-18 05:49] LABS: HEMOGLOBIN 11.2 G/DL (11.5-16.0)
[2019-07-18] MEDS: ENOXAPARIN 30 MG/0.3 ML (LOVENOX) SYR SC SCH (06:45)
[2019-07-18] MEDS: MULTIVIT W/MINERALS TAB (THERAGRAN M) PO SCH (06:45)
[2019-07-18] MEDS ORDERED: morphine INJ 4 MG/ML 1 ML (VIAL/SYRINGE) IVP PRN (07:00)
--- NOTE | 2019-07-18 07:01 | Progress Note ---
Standard Progress Note Progress Notes/Assess & Plan Date Seen by a Provider: Jul 18, 2019 Time Seen by a Provider: 07:00 Progress/Assessment & Plan post op check no complaints radiographs--HW well positioned without fracture RLE--2 plus DP pulse with brisk cap refill. Intact sensation throughout. intact DF and PF of toes and ankle s/p RTKA mobilize as able Final Diagnosis no complaints Vital Signs Date Time Temp Pulse Resp B/P (MAP) Pulse Ox O2 Delivery O2 Flow Rate FiO2 07/18/19 04:00 37.2 97 18 155/77 (103) 99 Room Air 07/18/19 00:25 37.5 98 20 159/77 (104) 99 Room Air 07/17/19 19:52 37.3 102 20 146/75 (98) 94 Room Air 07/17/19 19:00 20 07/17/19 16:29 37.6 102 20 168/84 (112) 98 Room Air 07/17/19 12:00 37.8 101 18 138/74 (95) 98 Room Air 07/17/19 09:00 Room Air 07/17/19 08:00 36.6 95 18 144/80 (101) 99 Room Air I & O 07/18/19 07:00 Intake Total 2740 ml Balance 2740 ml Laboratory Tests Test 07/18/19 05:15 Range/Units Hemoglobin 11.2 L 11.5-16.0 G/DL Hematocrit 34 L 35-52 % RLE--incision clean and dry. No calf tenderness. Neg Surendra's s/p RTKA doing well PT then dc home MARK FISCHER MD Jul 18, 2019 07:01 POS
--- NOTE | 2019-07-18 07:52 | NUR ---
AWAKE OVERNIGHT MONITOR dc'd, 80mL wasted with Chana COWAN.
[2019-07-18 08:00] VITALS: BP 155/78
[2019-07-18] MEDS: ASPIRIN E.C. 81 MG (ECOTRIN) TAB PO SCH (08:10)
[2019-07-18] MEDS: SENNA W/DOCUSATE (SENOKOT S) TABLET PO SCH (08:11)
--- NOTE | 2019-07-18 09:44 | NUR ---
AYO/PJ spoke with the patient about plans upon discharge. Plan: The patient will return home with [facility] ( ) with PT and OT. AYO/PJ has sent discharge information to the agency and a choice form was signed and completed. DME: The patient stated that she does not have any medical equipment needs at this time due to already having a walking at home. No other needs at this time.
[2019-07-18 09:55] VITALS: BP 155/78
--- NOTE | 2019-07-18 09:59 | Physical Therapy Daily Note ---
PT Daily Note-Current Subjective Patient agrees to PT at this time. Patient reports she is feeling more stiff than pain this morning and was up frequently during the night. Patient states she is going home this morning. Pain Numeric Pain Scale: 2 Location: Right Location Body Site: Knee Pain Description: Acute Mental Status Patient Orientation: Person, Place, Time, Situation Transfers SCALE: Activities may be completed with or without assistive devices. 0-Gehqixobso-pjoyosc completes the activity by him/herself with no assistance from a helper. 5-Set-up or Clean-up Assistance-helper sets up or cleans up; patient completes activity. [place] assists only prior to or following the activity. 4-Supervision or Touching Assistance-helper provides verbal cues and/or touching/steadying and/or contact guard assistance as patient completes activity. Assistance may be provided throughout the activity or intermittently. 3-Partial/Moderate Assistance-helper does LESS THAN HALF the effort. [place] lifts, holds or supports trunk or limbs, but provides less than half the effort. 2-Substantial/Maximal Assistance-helper does MORE THAN HALF the effort. [place] lifts or holds trunk or limbs and provides more than half the effort. 6-Fzmixevhm-ywcapj does ALL the effort. Patient does none of the effort to complete the activity. Or, the assistance of 2 or more helpers is required for the patient to complete the activity. If activity was not attempted, code reason: 7-Patient Refused. 9-Not Applicable-not attempted and the patient did not perform the activity before the current illness, exacerbation or injury. 10-Not Attempted due to Environmental Limitations-(lack of equipment, weather restraints, etc.). 88-Not Attempted due to Medical Conditions or Safety Concerns. Sit to Stand (QC): 5 Weight Bearing Right Lower Extremity: Right Weight Bearing/Tolerated Gait Training Does the Patient Walk?: Yes Gait: 5 Distance: 400' Walk 10 feet (QC): 5 Walk 50 ft with 2 Turns(QC): 5 Walk 150 ft (QC): 5 Gait Assistive Device: FWW Slightly antalgic Stair Training Stair Training: Handrails/: 1 handrail, uses walker #of Steps: 3 1 Step (curb) (QC): 4 Stairs: Pattern: Step to Required cues for walker placement and foot sequencing. SBA. Exercises Seated Therapy Exercises: Ankle pumps, Long arc quads, Hip flexion Seated Reps: 10 Assessment Patient tolerated seated exercises well and demonstrated good functional strength. Patient stood without assistance and ambulated 400' with FWW. Patient ascended/descended 3 stairs with use of one railing and walker. Patient required education on walker placement on stairs and foot sequencing with SBA. Patient seated in recliner with polar pack placed and instructed on polar pack usage at home. PT Nursing Home Goals Oil Spraying Machine Operator Goals PT Nursing Home Goals Time Frame: Jul 23, 2019 Sit to Lying (QC): 4 Lying-Sitting on Side/Bed(QC): 4 Sit to Stand (QC): 4 Roll Left to Right (QC): 4 Chair/Dsl-ud-Tzfjg Xfer(QC): 4 Distance: 50' Walk 10 feet (QC): 4 Walk 10ft-Uneven Surface(QC): 4 Walk 50ft with 2 Turns (QC): 4 Gait Assistive Device: FWW PT Plan Treatment/Plan Treatment Plan: Continue Plan of Care Treatment Plan: Bed Mobility, Education, Functional Activity Rodrigo, Functional Strength, Gait, Safety, Therapeutic Exercise, Transfers Treatment Duration: Jul 23, 2019 Frequency: 11 times per week Estimated Hrs Per Day: .25 hour per day Patient and/or Family Agrees t: Yes Safety Risks/Education Patient Education: Steps Teaching Recipient: Patient Teaching Methods: Demonstration, Discussion Response to Teaching: Verbalize Understanding Time/GCodes Time In: 832 Time Out: 855 Total Billed Treatment Time: 23 Total Billed Treatment 1 visit EX 10min FA 13min MILI GÓMEZ PT Jul 18, 2019 09:59 POS
== END 2019-07-18 09:55 | disposition home health service (06) | DRG 470 ==
LOC: 4TH 05:46 → SURG 05:47 → 4TH 10:20
PROVIDERS: ADMIT Orthopaedic Surgery; ATTEND Orthopaedic Surgery
PROC: 0SRC0J9 Replacement of Right Knee Joint with Synthetic Substitute, Cemented, Open Approach (ICD-10-PCS; principal; 2019-07-16 07:28)
DX: M17.11 Unilateral primary osteoarthritis, right knee (principal); R11.2 Nausea with vomiting, unspecified
CPT/HCPCS: 36415; 73560; 82565; 85014; 85018; 86850; 86900; 86901; 94664